=== PATIENT | male | born 1955 | race Caucasian/White ===

== ENCOUNTER → 2017-09-02 | Outpatient (CLI) | payer BC | LOC: BMCIMAGING 08:33 | PROVIDERS: ATTEND Physician Assistant | DX: M22.91 Unspecified disorder of patella, right knee (principal); M25.461 Effusion, right knee ==

== ENCOUNTER → 2017-10-05 | Outpatient (CLI) | payer BC ==
[~2017-10-05] MED LIST: GADOBUTROL 10 ML VIAL IVP ONE
== END ==
LOC: FIMAGING 07:51
PROVIDERS: ATTEND Urology
DX: R97.20 Elevated prostate specific antigen [PSA] (principal)
CPT/HCPCS: A9585

== ENCOUNTER → 2017-10-06 | Outpatient (CLI) | payer BC | LOC: FIMAGING 18:57 | PROVIDERS: ATTEND Urology | DX: N40.0 Benign prostatic hyperplasia without lower urinary tract symptoms (principal) | CPT/HCPCS: A9585 ==